=== PATIENT | male | born 1970 | race African-American/Black ===

== ENCOUNTER → 2017-10-01 | Outpatient (CLI) | payer BC, OTHER ==
[~2017-10-01] VITALS: Ht 188 cm; Wt 111.0 kg
[~2017-10-01] MED LIST: ALEVE220 MG PO; AMOXICILLIN 50500 M1 PO; AUGMENTIN 875875 MG PO; HYDROCODON-ACE1 EAC7 PO; HYDROCODONE-APA1 TA1 PO; NABUMETONE 750750 M1 PO; NORCO 7.5-3251 EACH PO; RELAFEN750 MG PO; TIZANIDINE4 MG/1 TA1 PO; TRAMADOL 50 MG50 MG PO; VITAMIN E200 UNI4 PO
--- NOTE | ~2017-10-01 | HPC ---
[facility] [address] [place] [address] PAIN MANAGEMENT CONSULTATION Name: LUDIN MACEDO [id number] Admission: 10/01/17 Attend Phys: Syd Llanes DO Discharge: Date of : 74 Report #: [id number] THIS REPORT FOR: //name// CC: Keren Pablo Llanes The patient is a very pleasant 47-year-old gentleman being treated for symptomatic lumbar radiculopathy. He has been a patient off and on in the clinic since 2012. He has had occasional epidural injections, one in December and notes good incremental relief. Returns to pain clinic today noting that following that last epidural injection in December, he had good relief noting pain 95% until about a month ago. Pain has begun to recur. 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 Notes pain has recurred in the low back, right greater than left leg. Rates pain 7 on VAS, exacerbated with activity including bending. PHYSICAL EXAMINATION: Shows 47-year-old gentleman in reasonably good shape. BMI is 31.4 kilograms per meter squared. Blood pressure is modestly elevated 136/91, pulse 81, respiration 16, positive right leg raise in left. Pain is primarily on the right, but it is bilateral. Gait is tandem. Lumbar flexion limited to 80 degrees. Lower extremity strength is symmetric. DIAGNOSTIC STUDIES: I reviewed his MRI findings from 12/2012. He has multiple levels of moderate pathology, L4-L5 notes ligamentum flavum hypertrophy and bilateral facet hypertrophy causing narrowing of the canal down to about 7-8 mm. L5-S1 similarly shows narrowing to about 7 mm. There was a left paracentral annular fissure at this level. ASSESSMENT: Cervical radiculopathy, clinical exam history, typical good relief for many months with epidural injections. The patient is loathe to take opiate analgesics. He has prescription for hydrocodone, I gave him 30 tablets in December. He still has a few left. We will renew that prescription. RECOMMENDATION: We will continue the patient on nabumetone 750 b.i.d. Epidural injection under fluoroscopy today. Follow up simply as needed. We did talk briefly about moving forward, if symptoms begin to become more frequent, if he gets less efficacy with the epidural injections, if he develops focal weakness, bowel or bladder continence changes, saddle anesthesia, we may consider a referral for neurosurgical evaluation. He would really like to do all he can to avoid surgery. He would like to work another 10 years if he can and then retire. ASSESSMENT: Symptomatic lumbar radiculopathy. PROCEDURE: Lumbar epidural injection under fluoroscopy. [address] [address] PAIN MANAGEMENT CONSULTATION Name: LUDIN MACEDO TUSHAR Room #: [facility] Cherry#: [id number] Admission: 10/01/17 Attend Phys: Syd Llanes DO Discharge: Date of : 74 Report #: [id number] PROCEDURE NOTE: After both written and informed consent to include risk of spinal cord damage, increased pain, weakness and dural puncture, the patient was taken to the fluoroscopy suite, placed in the prone position. After sterile prep and drape, a skin wheal with lidocaine was raised. A 22-gauge epidural Tuohy needle was inserted in the midline at L5-S1 with good loss to resistance. Negative aspiration for cerebrospinal fluid or blood was noted. Then 1 mL of Omnipaque under biplanar fluoroscopy showed good spread within the epidural space. This was followed with 80 mg of triamcinolone plus 1 mL of 1.5% preservative-free Xylocaine, 0.5 mL Xylocaine was then injected to flush the needle; it was removed. The patient was monitored for an appropriate period of time and discharged in good and stable condition. <ELECTRONICALLY SIGNED> By: Syd Llanes DO 10/04/17 [id number] Syd Llanes DO /nt
[2017-10-01 12:50] VITALS: BP 136/91
== END | disposition home or self-care (01) ==
LOC: PAIN 01-22 11:35
DX: M54.16 Radiculopathy, lumbar region (principal); M54.12 Radiculopathy, cervical region; F11.20 Opioid dependence, uncomplicated

== ENCOUNTER → 2020-11-08 | Outpatient (CLI) | payer BC, OTHER ==
[~2020-11-08] VITALS: Ht 188 cm; Wt 120.8 kg
[~2020-11-08] MED LIST changes: +AMITRIPTYLINE H10 M3 PO; +CLARITIN10 M3 PO; +IBU600 MG PO; +IBUPROFEN 800800 M1 PO; +MEDROLDOSEPACK PO; +NEURONTIN 300M300 M2 PO; +NORVASC10 MG PO; +RELAFEN750 M1 PO
[2020-11-08 14:31] VITALS: BP 138/98
--- NOTE | 2020-11-08 15:13 | NUR ---
Pain Clinic Assessment: 1. History of Osteoarthritis: SPINE History of Rheumatoid Arthritis: Not Applicable 2. Height: 6 ft. 2 in. 188.0 cm. Weight: 266.4 lb. oz. 120.839 kg. Patient's BMI: 34.2 3. Vital Signs: BP: 138/98 Pulse: 88 Resp: 16 Temp: 02 Sat: 100 ECG Mon: 4. Pain Intensity: 8 5. Fall Risk: Dizziness: N Needs help standing or walking: N Fallen in the last 3 months: N Fall risk comments: 6. Patient on Blood Thinner: None 7. History of Hypertension: Y 8. Opioid Therapy greater than 6 weeks: N Opiate Contract Signed: 9. Risk Assessment Tool Provided: LOW RISK 0/3 10. Functional Assessment Tool: 11. Recreational Drug Use: Never Drug Type: Tobacco Use: Never Smoker Tobacco Type: Amount or Packs/day: How Many Years: Alcohol Use: Yes Frequency: Special Occasions Quant: 1 TO 2
== END ==
LOC: PAIN 06:58
PROVIDERS: ATTEND Anesthesiology Pain Medicine
DX: M54.16 Radiculopathy, lumbar region (principal); I10 Essential (primary) hypertension; Z79.891 Long term (current) use of opiate analgesic; Z72.89 Other problems related to lifestyle